=== PATIENT | male | born 1965 | race Caucasian/White ===

== ENCOUNTER 2019-02-04 10:56 | Inpatient (IN) ==
[2019-02-04 11:50] LABS: Basophils % 0.7 % (0.0-0.8); Eosinophils # 0.1 10*3/uL (0.0-0.87); Eosinophils % 1.4 % (0.00-10.9); Hematocrit 37.1 VOL% (42.0-52.0); Hemoglobin 12.1 GM/DL (14.0-18.0); Immature Granulocytes % 0.2 %; Immature Granulocytes Absolute 0.01 #; Lymphocytes % 17.5 % (21.2-54.2); Mean Corpuscular HGB Conc 32.6 GM/DL (32-36); Mean Corpuscular Volume 95.9 FL (87-102); Mean Platelet Volume 10.5 FL (9.6-12.0); Neutrophils % 77.2 % (38.7-73.9); Platelet Count 231 T/CUMM (130-400); Red Blood Count 3.87 MC/CUMM (3.8-5.5); Red Cell Distribution Width 12.7 % (9.3-17.3); White Blood Count 5.7 T/CUMM (4-12)
[2019-02-04 12:07] LABS: Calcium 8.8 MG/DL (8.5-10.1)
[2019-02-04] MEDS ORDERED: MAGNESIUM HYDROXIDE SUSP 30 ML UDCUP PO PRN (12:25)
[2019-02-04] MEDS ORDERED: ACETAMINOPHEN 325 MG TABLET PO PRN (12:25)
[2019-02-04] MEDS ORDERED: ONDANSETRON 4 MG/2 ML VIAL IV PRN (12:25)
[2019-02-04] MEDS ORDERED: MAGNESIUM SULF RIDER 2 GM in PREMIX 1 EACH IV PRN (12:25)
[2019-02-04] MEDS ORDERED: MORPHINE 4 MG/1 ML VIAL IV PRN (12:25)
[2019-02-04] MEDS ORDERED: MAGNESIUM SULF RIDER 4 GM in PREMIX 1 EACH IV PRN (12:25)
[2019-02-04] MEDS ORDERED: NITROGLYCERIN SL 0.4 MG TABLET SL PRN (12:25)
[2019-02-04] MEDS ORDERED: ALUM/MAG/SIMETH/LIDO VISC 1:1 30 ML BOTTLE PO PRN (12:25)
[2019-02-04 14:04] LABS: Risk Ratio 2.47; VLDL CHOLESTEROL 21.4 MG/DL
[2019-02-04 16:19] LABS: Apearance,Urine CLEAR (Clear); Bilirubin,Urine Negative (Negative); Blood, Urine Negative (Negative); Glucose,Urine (UA) Negative (Negative); Ketones,Urine Negative (Negative); Nitrite,Urine Negative (Negative); Protein,Urine Negative; RBC,Urine 2 /HPF (0-4); Urine Color Yellow (Yellow); Urine Specific Gravity 1.049 (1.001-1.035); Urine Urobilinogen < 2.0 EU/DL (0.2-1.0); WBC,Urine <1 /HPF (0-6)
[2019-02-04] MEDS: GABAPENTIN 400 MG CAPSULE PO SCH ×2 (16:33→21:44)
[2019-02-04 16:46] LABS: Barbiturates Screen,Urine Negative (Negative); Benzodiazepines Screen,Urine Negative (Negative); Cannabinoid Screen,Urine Negative (Negative); Opiate Screen,Urine Positive (Negative); Phencyclidine Screen,Urine Negative (Negative)
[2019-02-04] MEDS: DULoxetine 30 MG CAPSULE PO SCH (21:42)
[2019-02-04] MEDS: clonazePAM 0.5 MG TABLET PO SCH (21:42)
[2019-02-04] MEDS: oxyCODONE/ACETAMINOPHEN 5-325 MG TABLET PO SCH (21:42)
[2019-02-04] MEDS: POTASSIUM CHLORIDE 20 MEQ TABLET PO PRN (21:43)
[2019-02-04] MEDS: carvediloL 3.125 MG TABLET PO SCH (21:43)
[2019-02-04] MEDS: MORPHINE ER 30 MG TABLET PO SCH (21:43)
[2019-02-04] MEDS: APIXABAN 5 MG TABLET PO SCH (21:43)
[2019-02-04] MEDS: tiZANidine 4 MG TABLET PO SCH (21:43)
[2019-02-04] MEDS: AMITRIPTYLINE 25 MG TABLET PO SCH (21:43)
[2019-02-04] MEDS: ATORVASTATIN 10 MG TABLET PO SCH (21:43)
[2019-02-04] MEDS: DOCUSATE SODIUM 100 MG CAPSULE PO SCH (21:44)
[2019-02-05 04:37] LABS: Basophils % 0.8 % (0.0-0.8); Eosinophils # 0.2 10*3/uL (0.0-0.87); Eosinophils % 4.2 % (0.00-10.9); Hematocrit 32.9 VOL% (42.0-52.0); Hemoglobin 10.8 GM/DL (14.0-18.0); Immature Granulocytes % 0.2 %; Immature Granulocytes Absolute 0.01 #; Lymphocytes # 1.9 10*3/uL (1.4-4.0); Lymphocytes % 40.3 % (21.2-54.2); Mean Corpuscular HGB Conc 32.8 GM/DL (32-36); Mean Corpuscular Volume 95.9 FL (87-102); Mean Platelet Volume 10.7 FL (9.6-12.0); Monocytes % 6.3 % (1.7-12.7); Neutrophils % 48.2 % (38.7-73.9); Platelet Count 218 T/CUMM (130-400); Red Blood Count 3.43 MC/CUMM (3.8-5.5); Red Cell Distribution Width 12.9 % (9.3-17.3); White Blood Count 4.8 T/CUMM (4-12)
[2019-02-05 05:15] LABS: Albumin 3.1 G/DL (3.4-5.0); Bilirubin,Total 0.5 MG/DL (0.2-1.0); Calcium 8.7 MG/DL (8.5-10.1); Total Protein 6.3 G/DL (6.4-8.3)
[2019-02-05] MEDS: POTASSIUM CHLORIDE 20 MEQ TABLET PO PRN ×3 (05:31→12:10)
[2019-02-05] MEDS ORDERED: POTASSIUM CHLORIDE 20 MEQ TABLET PO ONE (07:43)
[2019-02-05] MEDS: LINACLOTIDE 145 MCG CAPSULE PO SCH (08:04)
[2019-02-05] MEDS ORDERED: LISINOPRIL 10 MG TABLET PO SCH (09:00)
[2019-02-05] MEDS ORDERED: VANCOMYCIN INJ 1,000 MG in SODIUM CHLORIDE 0.9% 250 ML IV SCH (10:00)
[2019-02-05] MEDS: DULoxetine 30 MG CAPSULE PO SCH ×2 (11:00→20:03)
[2019-02-05] MEDS: ASPIRIN EC 81 MG TABLET PO SCH (11:01)
[2019-02-05] MEDS: GABAPENTIN 400 MG CAPSULE PO SCH ×3 (11:01→20:03)
[2019-02-05] MEDS: OLANZapine 5 MG TABLET PO SCH (11:02)
[2019-02-05] MEDS: tiZANidine 4 MG TABLET PO SCH ×2 (11:03→20:03)
[2019-02-05] MEDS: clonazePAM 0.5 MG TABLET PO SCH ×2 (11:03→20:03)
[2019-02-05] MEDS: carvediloL 3.125 MG TABLET PO SCH ×2 (11:04→20:04)
[2019-02-05] MEDS: APIXABAN 5 MG TABLET PO SCH ×2 (11:04→20:03)
[2019-02-05] MEDS: MORPHINE ER 30 MG TABLET PO SCH ×2 (11:05→20:03)
[2019-02-05] MEDS: PANTOPRAZOLE 40 MG TABLET PO SCH (11:06)
[2019-02-05] MEDS: oxyCODONE/ACETAMINOPHEN 5-325 MG TABLET PO SCH ×2 (11:06→20:03)
[2019-02-05] MEDS ORDERED: SODIUM CHLORIDE 0.9% 500 ML IV ONE (11:08)
[2019-02-05] MEDS: PIPERACILLIN/TAZOBACTAM 3,375 MG in SODIUM CHLORIDE 0.9% 100 ML IV SCH ×2 (14:02→20:02)
[2019-02-05] MEDS: VANCOMYCIN INJ 1,250 MG in SODIUM CHLORIDE 0.9% 250 ML IV SCH (14:49)
[2019-02-05] MEDS: DOCUSATE SODIUM 100 MG CAPSULE PO SCH (20:03)
[2019-02-05] MEDS: ATORVASTATIN 10 MG TABLET PO SCH (20:03)
[2019-02-05] MEDS: AMITRIPTYLINE 25 MG TABLET PO SCH (20:04)
[2019-02-06] MEDS: VANCOMYCIN INJ 1,250 MG in SODIUM CHLORIDE 0.9% 250 ML IV SCH ×2 (01:04→13:32)
[2019-02-06] MEDS: PIPERACILLIN/TAZOBACTAM 3,375 MG in SODIUM CHLORIDE 0.9% 100 ML IV SCH ×3 (05:01→20:25)
[2019-02-06 07:21] LABS: Basophils # 0.1 10*3/uL (0.0-0.2); Basophils % 1.1 % (0.0-0.8); Eosinophils # 0.3 10*3/uL (0.0-0.87); Eosinophils % 5.7 % (0.00-10.9); Hematocrit 35.4 VOL% (42.0-52.0); Hemoglobin 11.2 GM/DL (14.0-18.0); Immature Granulocytes % 0.2 %; Immature Granulocytes Absolute 0.01 #; Lymphocytes # 1.4 10*3/uL (1.4-4.0); Lymphocytes % 32.2 % (21.2-54.2); Mean Corpuscular HGB Conc 31.6 GM/DL (32-36); Mean Corpuscular Volume 98.9 FL (87-102); Mean Platelet Volume 10.1 FL (9.6-12.0); Monocytes % 5.2 % (1.7-12.7); Neutrophils % 55.6 % (38.7-73.9); Platelet Count 172 T/CUMM (130-400); Red Blood Count 3.58 MC/CUMM (3.8-5.5); Red Cell Distribution Width 12.9 % (9.3-17.3); White Blood Count 4.4 T/CUMM (4-12)
[2019-02-06 07:45] LABS: Alanine Aminotransferase 44 U/L (16-61); Alkaline Phosphatase 66 U/L (45-117); Aspartate Amino Transferase 35 U/L (0-37); Bilirubin,Total < 0.39 MG/DL (0.2-1.0); Blood Urea Nitrogen 18 MG/DL (7-18); Calcium 8.8 MG/DL (8.5-10.1); Estimated Glom Filtration Rate 76 ML/MIN; Glucose 89 MG/DL (74-106); Osmolality,Calculated 292.4 MOS/KG (273-304)
[2019-02-06] MEDS: ASPIRIN EC 81 MG TABLET PO SCH (08:40)
[2019-02-06] MEDS: carvediloL 3.125 MG TABLET PO SCH ×2 (08:40→20:26)
[2019-02-06] MEDS: OLANZapine 5 MG TABLET PO SCH (08:40)
[2019-02-06] MEDS: clonazePAM 0.5 MG TABLET PO SCH ×2 (08:40→20:25)
[2019-02-06] MEDS: DULoxetine 30 MG CAPSULE PO SCH ×2 (08:40→20:25)
[2019-02-06] MEDS: PANTOPRAZOLE 40 MG TABLET PO SCH (08:40)
[2019-02-06] MEDS: POTASSIUM CHLORIDE 20 MEQ TABLET PO PRN (08:40)
[2019-02-06] MEDS: oxyCODONE/ACETAMINOPHEN 5-325 MG TABLET PO SCH ×2 (08:41→20:26)
[2019-02-06] MEDS: APIXABAN 5 MG TABLET PO SCH ×2 (08:41→20:26)
[2019-02-06] MEDS: MORPHINE ER 30 MG TABLET PO SCH ×2 (08:42→20:27)
[2019-02-06] MEDS: GABAPENTIN 400 MG CAPSULE PO SCH ×3 (08:42→20:26)
[2019-02-06] MEDS: tiZANidine 4 MG TABLET PO SCH ×2 (10:30→20:26)
[2019-02-06] MEDS: LINACLOTIDE 145 MCG CAPSULE PO SCH (13:31)
[2019-02-06] MEDS: AMITRIPTYLINE 25 MG TABLET PO SCH (20:26)
[2019-02-06] MEDS: ATORVASTATIN 10 MG TABLET PO SCH (20:26)
[2019-02-06] MEDS: DOCUSATE SODIUM 100 MG CAPSULE PO SCH (20:26)
[2019-02-07] MEDS: VANCOMYCIN INJ 1,250 MG in SODIUM CHLORIDE 0.9% 250 ML IV SCH ×2 (01:48→15:28)
[2019-02-07] MEDS: PIPERACILLIN/TAZOBACTAM 3,375 MG in SODIUM CHLORIDE 0.9% 100 ML IV SCH ×3 (04:56→21:43)
[2019-02-07 05:37] LABS: Eosinophils # 0.4 10*3/uL (0.0-0.87); Eosinophils % 8.7 % (0.00-10.9); Hematocrit 33.4 VOL% (42.0-52.0); Immature Granulocytes % 0.2 %; Immature Granulocytes Absolute 0.01 #; Lymphocytes # 1.6 10*3/uL (1.4-4.0); Lymphocytes % 39.6 % (21.2-54.2); Mean Corpuscular HGB Conc 32.9 GM/DL (32-36); Mean Corpuscular Volume 97.4 FL (87-102); Mean Platelet Volume 10.1 FL (9.6-12.0); Monocytes % 5.6 % (1.7-12.7); Neutrophils % 44.9 % (38.7-73.9); Platelet Count 154 T/CUMM (130-400); Red Blood Count 3.43 MC/CUMM (3.8-5.5); Red Cell Distribution Width 12.7 % (9.3-17.3); White Blood Count 4.1 T/CUMM (4-12)
[2019-02-07 06:09] LABS: Albumin 2.9 G/DL (3.4-5.0); Bilirubin,Total 0.5 MG/DL (0.2-1.0); Osmolality,Calculated 290.6 MOS/KG (273-304); Total Protein 6.1 G/DL (6.4-8.3)
[2019-02-07] MEDS: DULoxetine 30 MG CAPSULE PO SCH ×2 (08:39→21:45)
[2019-02-07] MEDS: ASPIRIN EC 81 MG TABLET PO SCH (08:39)
[2019-02-07] MEDS: clonazePAM 0.5 MG TABLET PO SCH ×2 (08:39→21:45)
[2019-02-07] MEDS: PANTOPRAZOLE 40 MG TABLET PO SCH (08:39)
[2019-02-07] MEDS: OLANZapine 5 MG TABLET PO SCH (08:39)
[2019-02-07] MEDS: MORPHINE ER 30 MG TABLET PO SCH ×2 (08:39→21:46)
[2019-02-07] MEDS: carvediloL 3.125 MG TABLET PO SCH ×2 (08:40→21:45)
[2019-02-07] MEDS: GABAPENTIN 400 MG CAPSULE PO SCH ×3 (08:40→21:45)
[2019-02-07] MEDS: APIXABAN 5 MG TABLET PO SCH ×2 (08:40→21:46)
[2019-02-07] MEDS: oxyCODONE/ACETAMINOPHEN 5-325 MG TABLET PO SCH ×2 (08:40→21:46)
[2019-02-07] MEDS: tiZANidine 4 MG TABLET PO SCH ×2 (08:40→21:45)
[2019-02-07] MEDS: LINACLOTIDE 145 MCG CAPSULE PO SCH (08:43)
[2019-02-07] MEDS: DOCUSATE SODIUM 100 MG CAPSULE PO SCH (21:45)
[2019-02-07] MEDS: ATORVASTATIN 10 MG TABLET PO SCH (21:45)
[2019-02-07] MEDS: AMITRIPTYLINE 25 MG TABLET PO SCH (21:45)
[2019-02-08] MEDS: VANCOMYCIN INJ 1,250 MG in SODIUM CHLORIDE 0.9% 250 ML IV SCH (01:25)
[2019-02-08 05:05] LABS: Basophils % 0.6 % (0.0-0.8); Eosinophils # 0.4 10*3/uL (0.0-0.87); Hematocrit 33.4 VOL% (42.0-52.0); Hemoglobin 10.8 GM/DL (14.0-18.0); Immature Granulocytes % 0.3 %; Immature Granulocytes Absolute 0.02 #; Lymphocytes # 1.4 10*3/uL (1.4-4.0); Lymphocytes % 20.4 % (21.2-54.2); Mean Corpuscular HGB Conc 32.3 GM/DL (32-36); Mean Corpuscular Volume 96.3 FL (87-102); Mean Platelet Volume 10.9 FL (9.6-12.0); Monocytes % 4.8 % (1.7-12.7); Neutrophils % 67.9 % (38.7-73.9); Platelet Count 187 T/CUMM (130-400); Red Blood Count 3.47 MC/CUMM (3.8-5.5); Red Cell Distribution Width 12.7 % (9.3-17.3); White Blood Count 6.7 T/CUMM (4-12)
[2019-02-08] MEDS: PIPERACILLIN/TAZOBACTAM 3,375 MG in SODIUM CHLORIDE 0.9% 100 ML IV SCH ×2 (05:05→13:18)
[2019-02-08 05:29] LABS: Albumin 2.8 G/DL (3.4-5.0); Bilirubin,Total 0.6 MG/DL (0.2-1.0); Calcium 8.9 MG/DL (8.5-10.1); Osmolality,Calculated 295.3 MOS/KG (273-304)
[2019-02-08] MEDS ORDERED: MAGNESIUM HYDROXIDE SUSP 30 ML UDCUP PO ONE (05:52)
[2019-02-08] MEDS ORDERED: LINACLOTIDE 145 MCG CAPSULE PO SCH (05:52)
[2019-02-08] MEDS: DULoxetine 30 MG CAPSULE PO SCH (08:38)
[2019-02-08] MEDS: clonazePAM 0.5 MG TABLET PO SCH (08:38)
[2019-02-08] MEDS: OLANZapine 5 MG TABLET PO SCH (08:38)
[2019-02-08] MEDS: oxyCODONE/ACETAMINOPHEN 5-325 MG TABLET PO SCH (08:39)
[2019-02-08] MEDS: GABAPENTIN 400 MG CAPSULE PO SCH (08:39)
[2019-02-08] MEDS: tiZANidine 4 MG TABLET PO SCH (08:39)
[2019-02-08] MEDS: MORPHINE ER 30 MG TABLET PO SCH (08:39)
[2019-02-08] MEDS: ASPIRIN EC 81 MG TABLET PO SCH (08:39)
[2019-02-08] MEDS: APIXABAN 5 MG TABLET PO SCH (08:39)
[2019-02-08] MEDS: carvediloL 3.125 MG TABLET PO SCH (08:39)
[2019-02-08] MEDS: PANTOPRAZOLE 40 MG TABLET PO SCH (08:39)
[2019-02-08] MEDS ORDERED: MAGNESIUM SULF RIDER 2 GM in PREMIX 1 EACH IV ONE (10:21)
[2019-02-08 15:50] VITALS: BP 92/45
== END 2019-02-08 14:19 | disposition home or self-care (01) | DRG 880 ==
LOC: N.ED 10:56 → N.EDINP 10:56 → N.2W 12:47 → N.5E 02-05 13:12
PROVIDERS: ADMIT Internal Medicine; ATTEND Internal Medicine

== ENCOUNTER 2019-04-27 14:48 | Observation (INO) ==
[2019-04-27] MEDS ORDERED: ASPIRIN 325 MG TABLET PO STA (15:24)
[2019-04-27] MEDS ORDERED: NITROGLYCERIN SL 0.4 MG TABLET SL PRN (15:24)
[2019-04-27 15:40] LABS: Basophils % 0.6 % (0.0-0.8); Eosinophils # 0.3 10*3/uL (0.0-0.87); Eosinophils % 5.2 % (0.00-10.9); Hematocrit 39.8 VOL% (42.0-52.0); Immature Granulocytes % 0.2 %; Immature Granulocytes Absolute 0.01 #; Lymphocytes # 1.2 10*3/uL (1.4-4.0); Mean Corpuscular HGB Conc 32.7 GM/DL (32-36); Monocytes % 3.4 % (1.7-12.7); Neutrophils % 68.6 % (38.7-73.9); Platelet Count 253 T/CUMM (130-400); Red Blood Count 4.28 MC/CUMM (3.8-5.5); Red Cell Distribution Width 13.2 % (9.3-17.3); White Blood Count 5.2 T/CUMM (4-12)
[2019-04-27 15:57] LABS: Osmolality,Calculated 282.4 MOS/KG (273-304)
[2019-04-27] MEDS ORDERED: ACETAMINOPHEN 325 MG TABLET PO PRN (16:42)
[2019-04-27] MEDS ORDERED: MAGNESIUM HYDROXIDE SUSP 30 ML UDCUP PO PRN (16:42)
[2019-04-27] MEDS ORDERED: traZODone 50 MG TABLET PO PRN (16:42)
[2019-04-27] MEDS ORDERED: ONDANSETRON 4 MG/2 ML VIAL IV PRN (16:56)
[2019-04-27] MEDS: oxyCODONE/ACETAMINOPHEN 5-325 MG TABLET PO PRN (18:56)
[2019-04-27 19:29] LABS: Apearance,Urine CLEAR (Clear); Bilirubin,Urine Negative (Negative); Blood, Urine Negative (Negative); Glucose,Urine (UA) Negative (Negative); Ketones,Urine Negative (Negative); Mucus,Urine Occasional /LPF (Occasional); Nitrite,Urine Negative (Negative); Protein,Urine Negative; RBC,Urine <1 /HPF (0-4); Urine Color Straw (Yellow); Urine Specific Gravity 1.011 (1.001-1.035); Urine Urobilinogen < 2.0 EU/DL (0.2-1.0); WBC,Urine <1 /HPF (0-6)
[2019-04-27] MEDS: GABAPENTIN 400 MG CAPSULE PO SCH (21:33)
[2019-04-27] MEDS: APIXABAN 5 MG TABLET PO SCH (21:33)
[2019-04-27] MEDS: FUROSEMIDE 40 MG TABLET PO SCH (21:33)
[2019-04-27] MEDS: carvediloL 3.125 MG TABLET PO SCH (21:33)
[2019-04-28 04:59] LABS: Basophils # 0.1 10*3/uL (0.0-0.2); Basophils % 0.7 % (0.0-0.8); Eosinophils # 0.5 10*3/uL (0.0-0.87); Eosinophils % 6.6 % (0.00-10.9); Hematocrit 37.7 VOL% (42.0-52.0); Hemoglobin 12.1 GM/DL (14.0-18.0); Immature Granulocytes % 0.3 %; Immature Granulocytes Absolute 0.02 #; Lymphocytes # 1.9 10*3/uL (1.4-4.0); Lymphocytes % 24.5 % (21.2-54.2); Mean Corpuscular HGB Conc 32.1 GM/DL (32-36); Mean Corpuscular Volume 92.9 FL (87-102); Mean Platelet Volume 9.3 FL (9.6-12.0); Monocytes % 5.7 % (1.7-12.7); Neutrophils % 62.2 % (38.7-73.9); Platelet Count 271 T/CUMM (130-400); Red Blood Count 4.06 MC/CUMM (3.8-5.5); Red Cell Distribution Width 13.2 % (9.3-17.3); White Blood Count 7.5 T/CUMM (4-12)
[2019-04-28 05:14] LABS: Calcium 8.7 MG/DL (8.5-10.1); Osmolality,Calculated 288.8 MOS/KG (273-304)
[2019-04-28] MEDS: MORPHINE ER 30 MG TABLET PO SCH ×2 (05:37→14:06)
[2019-04-28] MEDS ORDERED: PANTOPRAZOLE 40 MG TABLET PO SCH (09:00)
[2019-04-28] MEDS: APIXABAN 5 MG TABLET PO SCH ×2 (09:54→21:38)
[2019-04-28] MEDS: LINACLOTIDE 145 MCG CAPSULE PO SCH (09:54)
[2019-04-28] MEDS: GABAPENTIN 400 MG CAPSULE PO SCH ×3 (09:54→21:36)
[2019-04-28] MEDS: ASPIRIN CHEW 81 MG TABLET PO SCH (09:54)
[2019-04-28] MEDS: carvediloL 3.125 MG TABLET PO SCH ×2 (09:54→21:36)
[2019-04-28] MEDS: DOCUSATE SODIUM 100 MG CAPSULE PO SCH (09:54)
[2019-04-28] MEDS: FUROSEMIDE 40 MG TABLET PO SCH ×2 (09:55→21:36)
[2019-04-28] MEDS: SENNA 8.6 MG TABLET PO SCH (09:55)
[2019-04-28] MEDS: oxyCODONE/ACETAMINOPHEN 5-325 MG TABLET PO PRN ×2 (10:15→21:41)
[2019-04-28] MEDS ORDERED: ALUM/MAG/SIMETH/LIDO VISC 1:1 30 ML BOTTLE PO PRN (14:42)
[2019-04-28] MEDS: POTASSIUM CHLORIDE 20 MEQ TABLET PO PRN ×3 (15:37→19:30)
[2019-04-28 15:45] LABS: Alanine Aminotransferase 37 U/L (16-61); Albumin 3.3 G/DL (3.4-5.0); Alkaline Phosphatase 89 U/L (45-117); Aspartate Amino Transferase 17 U/L (0-37); Bilirubin,Indirect 0.3 MG/DL (0.0-1.0); Bilirubin,Total < 0.39 MG/DL (0.2-1.0); Total Protein 7.6 G/DL (6.4-8.3)
[2019-04-28 18:51] LABS: Barbiturates Screen,Urine Negative (Negative); Benzodiazepines Screen,Urine Negative (Negative); Cannabinoid Screen,Urine Negative (Negative); Opiate Screen,Urine Positive (Negative); Phencyclidine Screen,Urine Negative (Negative)
[2019-04-28] MEDS: PANTOPRAZOLE 40 MG TABLET PO SCH (21:36)
[2019-04-29 04:47] LABS: Basophils # 0.1 10*3/uL (0.0-0.2); Basophils % 0.7 % (0.0-0.8); Eosinophils # 0.6 10*3/uL (0.0-0.87); Eosinophils % 7.9 % (0.00-10.9); Hematocrit 41.4 VOL% (42.0-52.0); Hemoglobin 13.3 GM/DL (14.0-18.0); Immature Granulocytes % 0.3 %; Immature Granulocytes Absolute 0.02 #; Lymphocytes # 1.8 10*3/uL (1.4-4.0); Lymphocytes % 23.4 % (21.2-54.2); Mean Corpuscular HGB Conc 32.1 GM/DL (32-36); Mean Corpuscular Volume 94.1 FL (87-102); Mean Platelet Volume 9.1 FL (9.6-12.0); Monocytes % 5.2 % (1.7-12.7); Neutrophils % 62.5 % (38.7-73.9); Platelet Count 263 T/CUMM (130-400); White Blood Count 7.5 T/CUMM (4-12)
[2019-04-29 05:12] LABS: Calcium 9.3 MG/DL (8.5-10.1); Osmolality,Calculated 280.5 MOS/KG (273-304)
[2019-04-29] MEDS: MORPHINE ER 30 MG TABLET PO SCH ×2 (05:51→12:32)
[2019-04-29] MEDS: POTASSIUM CHLORIDE 20 MEQ TABLET PO PRN (05:52)
[2019-04-29] MEDS: LINACLOTIDE 145 MCG CAPSULE PO SCH (09:25)
[2019-04-29] MEDS: APIXABAN 5 MG TABLET PO SCH (09:25)
[2019-04-29] MEDS: GABAPENTIN 400 MG CAPSULE PO SCH ×2 (09:26→16:35)
[2019-04-29] MEDS: ASPIRIN CHEW 81 MG TABLET PO SCH (09:26)
[2019-04-29] MEDS: FUROSEMIDE 40 MG TABLET PO SCH (09:26)
[2019-04-29] MEDS: carvediloL 3.125 MG TABLET PO SCH (09:26)
[2019-04-29] MEDS: SENNA 8.6 MG TABLET PO SCH (09:26)
[2019-04-29] MEDS: DOCUSATE SODIUM 100 MG CAPSULE PO SCH (09:26)
[2019-04-29] MEDS: PANTOPRAZOLE 40 MG TABLET PO SCH (09:27)
[2019-04-29] MEDS: oxyCODONE/ACETAMINOPHEN 5-325 MG TABLET PO PRN (10:13)
[2019-04-29 12:55] VITALS: BP 127/77
== END 2019-04-29 16:47 | disposition home or self-care (01) ==
LOC: EDBD → EDUNIT# → N.ED 14:48 → N.EDINP 14:48 → N.TELEN 17:36
PROVIDERS: ADMIT Hospitalist; ATTEND Hospitalist